=== PATIENT | female | born 1990 | race Caucasian/White ===

== ENCOUNTER 2020-07-05 01:07 | Inpatient (IN) ==
[2020-07-05] MEDS ORDERED: Buffered Lidocaine 1% SYRIN 1 ml INTRADERM ONE ×2 (01:54→04:51)
[2020-07-05] MEDS ORDERED: Morphine 10 MG/ML VIAL (1 ml) IM ONE (01:56)
[2020-07-05] MEDS ORDERED: Promethazine INJ(RESTRICTED) 25 MG/ML 1 ml VIAL IM ONE (01:57)
[2020-07-05 03:10] LABS: Urine Benzodiazepine Screen None Detected (None Detect); Urine Cannabinoids Screen None Detected (None Detect); Urine Opiates Screen None Detected (None Detect)
[2020-07-05] MEDS ORDERED: Lactated Ringers 1000 ml BAG 1,000 ML IV ONE ×2 (04:51→06:15)
[2020-07-05] MEDS ORDERED: Lactated Ringers 1000 ml BAG 1,000 ML IV SCH ×2 (05:00→07:00)
[2020-07-05 05:14] LABS: ABS Lymphocytes 1.7 10^3/ul (1.0-4.8); ABS Monocytes 0.9 10^3/ul (0-0.8); ABS Neutrophils 10.3 10^3/ul (1.5-7.7); Eosinophil % 0.1 %; Hematocrit 34 % (35-47); Hemoglobin 11.4 g/dL (12.0-16.0); Lymphocyte % 12.9 %; Mean Corpuscular HGB Conc 33 g/dL (31-36); Mean Corpuscular Hemoglobin 29 pg (27-31); Mean Corpuscular Volume 87 fL (80-97); Mean Platelet Volume 8.8 fL (7.4-10.4); Platelet Count 270 10^3/uL (150-450); Red Blood Count 3.91 10^6 /uL (3.70-4.87); Red Cell Distribution Width 14 % (10-15)
[2020-07-05] MEDS ORDERED: OBEPIDURAL 250 ML EPIDURAL ONE (05:22)
[2020-07-05] MEDS ORDERED: Sodium Citrate/Citric Acid LIQ 15 ML UDC PO PRN (06:15)
[2020-07-05] MEDS ORDERED: Phenylephrine 40 mcg/mL 10mL (400mcg) SYRINGE IV PUSH PRN ×2 (06:15)
[2020-07-05] MEDS: OBEPIDURAL 250 ML EPIDURAL SCH (07:05)
[2020-07-05] MEDS ORDERED: Oxytocin in LR 0 UNITS/0 ML BAG IVPB ONE (22:21)
[2020-07-05] MEDS ORDERED: ceFOXitin 2 GM IVPREMIX 2 GM/50 ML BAG ONE (23:51)
[2020-07-05] MEDS ORDERED: ceFOXitin 2 GM IVPREMIX 2 GM/50 ML BAG IVPB ONE (23:52)
[2020-07-05] MEDS ORDERED: Sodium Citrate/Citric Acid LIQ 15 ML UDC PO ONE (23:53)
[2020-07-06] MEDS ORDERED: Oxytocin 10 UNITS/ML 1 ML VIAL ONE (00:08)
[2020-07-06] MEDS ORDERED: Lidocaine 2% PF 10 ML AMP ONE (00:09)
[2020-07-06] MEDS ORDERED: fentaNYL 100 mcg/2 ml 50 MCG/ML VIAL ONE (00:09)
[2020-07-06] MEDS ORDERED: Chloroprocaine 3% 20 ml VIAL ONE (00:09)
[2020-07-06] MEDS ORDERED: Morphine PF AMP (0.5MG/ML) 5 MG/10 ML AMP ONE (00:09)
[2020-07-06] MEDS ORDERED: Phenylephrine 40 mcg/mL 10mL (400mcg) SYRINGE ONE (00:31)
[2020-07-06] MEDS ORDERED: Ondansetron 4 mg VIAL 2 MG/ML 2 ml VIAL IV PRN ×2 (00:47→00:49)
[2020-07-06] MEDS ORDERED: fentaNYL 100 mcg/2 ml 50 MCG/ML VIAL IV PRN (00:47)
[2020-07-06] MEDS ORDERED: Naloxone 0.4 mg VIAL 0.4 mg/ml 1 ml VIAL IV PRN ×2 (00:47→00:49)
[2020-07-06] MEDS ORDERED: oxyCODONE/Acetamin 5/325 mg TAB PO PRN (00:49)
[2020-07-06] MEDS ORDERED: diPHENhydraMINE IV 50 MG/ML 1 ml VIAL (BENADRYL) IV PRN (00:49)
[2020-07-06] MEDS ORDERED: Scopolamine PATCH Remove NOTE PATCH OFF PRN (00:49)
[2020-07-06] MEDS ORDERED: Dibucaine 1% OINT 28.35 GM TUBE PR PRN (01:30)
[2020-07-06] MEDS ORDERED: Glycerin ADULT 2.4 gm SUPP PR PRN (01:30)
[2020-07-06] MEDS ORDERED: Witch Hazel PAD JAR TOPICAL PRN (01:30)
[2020-07-06] MEDS ORDERED: Oxytocin in LR 20 UNITS/1,000 ML BAG IVPB SCH (02:00)
[2020-07-06] MEDS: oxyCODONE/Acetamin 5/325 mg TAB PO PRN ×2 (04:14→13:46)
[2020-07-07 07:46] LABS: ABS Eosinophils 0.1 10^3/ul (0-0.6); ABS Lymphocytes 1.1 10^3/ul (1.0-4.8); ABS Monocytes 1.1 10^3/ul (0-0.8); ABS Neutrophils 13.7 10^3/ul (1.5-7.7); Eosinophil % 0.9 %; Hematocrit 29 % (35-47); Hemoglobin 9.7 g/dL (12.0-16.0); Lymphocyte % 6.8 %; Mean Corpuscular HGB Conc 33 g/dL (31-36); Mean Corpuscular Hemoglobin 29 pg (27-31); Mean Corpuscular Volume 87 fL (80-97); Mean Platelet Volume 8.1 fL (7.4-10.4); Platelet Count 243 10^3/uL (150-450); Red Blood Count 3.34 10^6 /uL (3.70-4.87); Red Cell Distribution Width 14 % (10-15); White Blood Count 16.1 10^3/uL (3.5-10.8)
[2020-07-08] MEDS: OBEPIDURAL 250 ML EPIDURAL SCH ×2 (07:44→08:14)
[2020-07-09 12:05] VITALS: BP 102/61
== END 2020-07-09 13:28 | disposition home or self-care (01) | DRG 540 ==
LOC: MCHOBOUT 01:07 → MCHOB 04:12
PROVIDERS: ADMIT Midwife; ATTEND Midwife